=== PATIENT | male | born 1930 | race Caucasian/White ===

== ENCOUNTER 2017-10-25 20:38 | Emergency (ER) | payer MEDICARE ==
[~2017-10-25] VITALS: Ht 188 cm; Wt 96.2 kg
[~2017-10-25 20:38] MED LIST: ASPI-496 PO; HYDR12.58 PO; IBUP-1484 PO; METH750T87 PO; METO25TA35 PO; OXYC-302 PO
[2017-10-25 20:45] VITALS: BP 154/70
== END 2017-10-25 21:15 | disposition home or self-care (01) ==
LOC: ED 21:00
DX: T16.1XXA Foreign body in right ear, initial encounter (principal); I10 Essential (primary) hypertension; Z87.891 Personal history of nicotine dependence; Y93.89 Activity, other specified; Y92.89 Other specified places as the place of occurrence of the external cause; Y99.8 Other external cause status
CPT/HCPCS: 69200; 99284